=== PATIENT | male | born 1960 | race Caucasian/White ===

== ENCOUNTER 2021-09-28 11:05 | Observation (INO) | payer MEDICAID, SELFPAY ==
[2021-09-28] VITALS (13 sets, daily range): BP systolic 135–217; BP diastolic 75–114; PULSE 49–85; RESP 15–24; TEMP 36.5–37.3; O2SAT 92–99; BMI 28.0
--- NOTE | 2021-09-28 | USCV_ITS ---
Transthoracic Echo Jonathan Mclaughlin Age: 61 Gender: M : 1960 Exam Date: 09/28/2021 21:35 Ordering Phys: Krunal Dumont MD Technologist: CKSangeetha Exam Location: [facility] Indication: CHEST PAIN BP: 142 / 89 HR: 74 Rhythm: Sinus Technical Quality: Suboptimal MEASUREMENTS (Male / Female) Normal Values 2D ECHO LV Diastolic Diameter PLAX 3.4 cm 4.2 - 5.9 / 3.9 - 5.3 cm LV Systolic Diameter PLAX 2.0 cm IVS Diastolic Thickness 1.4 cm 0.6 - 1.0 / 0.6 - 0.9 cm IVS Systolic Thickness 1.4 cm LVPW Diastolic Thickness 1.5 cm 0.6 - 1.0 / 0.6 - 0.9 cm LVPW Systolic Thickness 2.0 cm LVOT Diameter 2.0 cm LV Ejection Fraction 2D Teich 73.0 % LV Ejection Fraction MOD 2C 77.3 % LV Ejection Fraction 2C AL 75.5 % LA Diameter 3.6 cm LA Width 4.4 cm LA Height 4.5 cm RA Width 4.3 cm RA Height 4.6 cm Aorta at Sinotubular Diameter 2.0 cm M-MODE Aortic Annulus Diameter 2.0 cm LA Ao Ratio MM 2.2 MV E Point Septal Separation 0.8 cm DOPPLER AV Peak Velocity 79.0 cm/s LVOT Peak Velocity 74.0 cm/s AV Area Cont Eq vti 5.2 cm squared AV Area Cont Eq pk 2.8 cm squared MV Peak Velocity 108.0 cm/s MV Area PHT 1.5 cm squared Mitral E to A Ratio 0.6 MV E' Velocity 33.0 cm/s Mitral E to MV E' Ratio 7.8 Mitral E to LV E' Lateral Ratio 7.6 Mitral E to LV E' Septal Ratio 8.0 TR Peak Velocity 186.7 cm/s TR Peak Gradient 13.9 mmHg TV Peak E Velocity 61.0 cm/s Right Atrial Pressure 3.0 mmHg Pulmonary Artery Systolic Pressu 16.9 mmHg RV Acceleration Time 0.1 s RV Ejection Time 0.4 s RV AcT/ET 0.4 FINDINGS Left Ventricle Normal left ventricular size, systolic function and wall thickness, with no regional wall motion abnormalities. Grade I/IV diastolic dysfunction (abnormal relaxation filling pattern), normal to mildly elevated filling pressures. Left ventricular ejection fraction is estimated at 55 %. Right Ventricle Normal right ventricular size and systolic function. Right Atrium Normal right atrial size. Left Atrium Normal left atrial size. Left atrium not well visualized. Mitral Valve Structurally normal mitral valve. No mitral valve stenosis. No mitral valve regurgitation. Aortic Valve Structurally normal trileaflet aortic valve. No aortic valve stenosis. No aortic valve regurgitation. Tricuspid Valve Structurally normal tricuspid valve. No tricuspid valve regurgitation. Pulmonic Valve Structurally normal pulmonic valve. Pericardium No pericardial effusion. Aorta Normal size aortic root and proximal ascending aorta. CONCLUSIONS Normal transthoracic echocardiogram. Dr. Horace Galloway MD (Electronically Signed) Final Date: 29 September 2021 12:50 S
--- NOTE | 2021-09-28 11:14 | XR_ITS ---
WS: [id number] Exam: XR chest 1V portable [id number] Date/Time of Exam: 09/28/2021 11:14 AM Reason For Exam: CP Comparison 09/28/2021. Findings: The lungs are clear and fully expanded. Costophrenic angles are sharp. No infiltrates. Bronchovascula r relief appears normal. Cardiac silhouette is unremarkable. Bony elements are intact. XR/XR chest 1V portable [id number] IMPRESSION: Unremarkable chest radiograph.
--- NOTE | 2021-09-28 11:14 | ECG_ITS ---
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 Measurements Intervals [place] Rate: 49 P: 10 WV: 148 QRS: -17 QRSD: 99 T: 13 QT: 435 QTc: 396 Interpretive Statements SINUS BRADYCARDIA INCOMPLETE RIGHT BUNDLE BRANCH BLOCK [90+ ms QRS DURATION, TERMINAL R IN V1/V2, 40+ ms S IN I/aVL/V4/V5/V6] MODERATE VOLTAGE CRITERIA FOR LVH, CONSIDER NORMAL VARIANT [MEETS CRITERIA IN ONE OF: R(aVL), S(V1), R(V5), R(V5/V6)+S(V1)] No previous ECG available for comparison Electronically Signed On 09-29-2021 12:25:00 DIRECTOR MEDICAL AFFAIRS by Horace Galloway M.D. [email or web address] [facility].Uni-[email or web address]/store/NU/[id number] f
--- NOTE | 2021-09-28 11:15 | ED_ITS ---
HPI - Chest Pain General: Chief Complaint: Chest Pain Stated Complaint: CHEST PAIN Time Seen by Provider: 09/28/21 11:08 History of Present Illness: 61-year-old male with history of hypertension presents with chest pain. States this started last night. Is not exertional or pleuritic. It is achy and does not radiate. Denies radiation to the back. Denies fever cough or chills. Denies any lower extremity pain or swelling. Denies nausea or vomiting. Does state that improved with nitroglycerin by EMS. Review of Systems Narrative: - CONSTITUTIONAL: Denies weight loss, fever and chills. - HEENT: Denies changes in vision and hearing. - RESPIRATORY: As above - CV: As above - GI: Denies abdominal pain, nausea, vomiting and diarrhea. - : Denies dysuria and urinary frequency. - MSK: Denies myalgia and joint pain. - SKIN: Denies rash and pruritus. - NEUROLOGICAL: Denies headache, weakness, numbness and syncope. - PSYCHIATRIC: Denies suicidal ideation Physical Exam Narrative: EXAM NARRATIVE: - GENERAL: Alert and oriented x 3. No acute distress. Well-nourished. - EYES: EOMI. Anicteric. - HENT: Atraumatic, no C-spine tenderness. Moist mucous membranes. No scleral icterus. No cervical lymphadenopathy. - LUNGS: Clear to auscultation bilaterally. No accessory muscle use. Equal lung sounds bilaterally. No respiratory distress. - CARDIOVASCULAR: Regular rate and rhythm. No murmur. No JVD. - ABDOMEN: Soft, non-tender and non-distended. Negative CVA tenderness bilaterally, no rebound or guarding, negative Miller sign. No palpable masses. - EXTREMITIES: No edema. Non-tender. - SKIN: No rashes or lesions. Warm. - NEUROLOGIC: No meningismus or focal neurological deficits. CN II-XII grossly intact. - PSYCHIATRIC: Cooperative. Appropriate mood and affect. Course 2 Vital Signs: Vital signs: Vital Signs Temperature 98.4 F 09/28/21 11:20 Pulse Rate 64 09/28/21 13:44 Respiratory Rate 16 09/28/21 13:44 Blood Pressure 217/111 09/28/21 13:44 Pulse Oximetry 94 09/28/21 13:44 MDM - Chest Pain Medical Decision Making 61-year-old presents with chest pain. Improved with nitro. Physical exam unremarkable. EKG and troponin not revealing sign of acute ischemia or other acute abnormality. D-dimer is negative. X-ray does not show pneumothorax or consolidation. Heart score however is elevated and patient is very hypertensive. Improved with labetalol. Remainder of lab work and imaging reviewed. Discussed with hospitalist and they agreed patient would benefit from admission. Patient admitted in stable condition. Further evaluation management per hospitalist team. Lab Data : 09/28/21 11:23 09/28/21 11:23 Radiology Impressions Chest X-Ray 09/28/21 11:14 IMPRESSION: Unremarkable chest radiograph. Laboratory Results WBC 9.2 10^3/uL (4.0-10.0) 09/28/21 11:23 RBC 5.60 10^6/uL (4.1-5.3) H 09/28/21 11:23 Hgb 16.8 g/dL (11.7-16.6) H 09/28/21 11:23 Hct 51.1 % (42.0-52.0) 09/28/21 11:23 MCV 91.3 fl (80-94) 09/28/21 11:23 MCH 30.0 pg (28.0-34.0) 09/28/21 11:23 MCHC 32.9 g/dL (30.0-36.0) 09/28/21 11:23 RDW 13.4 % (12.1-15.1) 09/28/21 11:23 Plt Count 201 10^3/cmm (130-400) 09/28/21 11:23 MPV 10.5 fL (7.4-10.4) H 09/28/21 11:23 Neut % (Auto) 82.3 % 09/28/21 11:23 Lymph % (Auto) 14.0 % 09/28/21 11:23 Newton % (Auto) 2.9 % 09/28/21 11:23 Eos % (Auto) 0.2 % 09/28/21 11:23 Baso % (Auto) 0.4 % 09/28/21 11:23 Neut # (Auto) 7.54 10^3/uL (1.8-7.7) 09/28/21 11:23 Lymph # (Auto) 1.3 10^3/uL (0.8-4.8) 09/28/21 11:23 Newton # (Auto) 0.3 10^3/uL (0.2-0.9) 09/28/21 11:23 Eos # (Auto) 0.0 10^3/uL (0.0-0.8) 09/28/21 11:23 Baso # (Auto) 0.0 10^3/uL (0.0-0.1) 09/28/21 11:23 Nucleated RBC % (auto) 0 % 09/28/21 11:23 Nucleated RBCs # 0.0 /100WBC 09/28/21 11:23 D-Dimer 0.49 ug/mIFEU (0-0.59) 09/28/21 11:53 Sodium 135 mmol/L (136-145) L 09/28/21 11:23 Potassium 4.7 mmol/L (3.5-5.1) 09/28/21 11:23 Chloride 102 mmol/L (98-107) 09/28/21 11:23 Carbon Dioxide 22 mmol/L (22-29) 09/28/21 11:23 Anion Gap 15.7 (5-19) 09/28/21 11:23 BUN 13 mg/dL (6-20) 09/28/21 11:23 Creatinine 0.7 mg/dL (0.7-1.2) 09/28/21 11:23 GFR Calculation 115.4 mL/min (90-130) 09/28/21 11:23 Glucose 175 mg/dL (65-115) H 09/28/21 11:23 Calculated Osmolality 284 mOsm/kg (285-295) L 09/28/21 11:23 Calcium 9.2 mg/dL (8.5-10.5) 09/28/21 11:23 Total Bilirubin 0.7 mg/dL (0.15-1.2) 09/28/21 11:23 AST 28 U/L (0-40) 09/28/21 11:23 ALT 30 U/L (0-41) 09/28/21 11:23 Alkaline Phosphatase 89 IU/L (40-130) 09/28/21 11:23 Troponin T Baseline 8 ng/L (0-15) 09/28/21 11:23 Troponin T 120 Minute 8.20 ng/L (0-15) 09/28/21 13:22 Delta Troponin T 0.2 ABS# (0-10) 09/28/21 13:22 NT-Pro-B Natriuret Pep 574 pg/mL (0-125) H 09/28/21 11:23 Total Protein 7.7 g/dL (6.6-8.7) 09/28/21 11:23 Albumin 4.4 g/dL (3.5-5.2) 09/28/21 11:23 Globulin 3.3 g/dL (1.3-4.6) 09/28/21 11:23 Lipase 33 U/L (13-60) 09/28/21 11:23 SARS-CoV-2 Ag (Rapid) Negative (Negative) 09/28/21 11:41 EKG Data EKG 1: Other EKG comments: Sinus bradycardia, rate of 49, incomplete right bundle branch block, possible LVH, no sign of acute ischemia or other acute abnormality. 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
[2021-09-28 11:31] LABS: Basophils % 0.4 %; Eosinophils % 0.2 %; Hematocrit 51.1 % (42.0-52.0); Hemoglobin 16.8 g/dL (11.7-16.6); Lymphocytes # 1.3 10^3/uL (0.8-4.8); Mean Corpuscular HGB Conc 32.9 g/dL (30.0-36.0); Mean Corpuscular Volume 91.3 fl (80-94); Mean Platelet Volume 10.5 fL (7.4-10.4); Monocytes # 0.3 10^3/uL (0.2-0.9); Monocytes % 2.9 %; Neutrophils # 7.54 10^3/uL (1.8-7.7); Neutrophils % 82.3 %; Nucleated Red Blood Cells % 0 %; Platelet Count 201 10^3/cmm (130-400); Red Cell Distribution Width 13.4 % (12.1-15.1); White Blood Count 9.2 10^3/uL (4.0-10.0)
[2021-09-28] MEDS: ondansetron 2 mg/ML SDV 2 mL 4 MG IVP (11:37)
[2021-09-28] MEDS: aspirin 81 mg Chew Tablet 324 MG PO (11:37)
[2021-09-28] MEDS: morphine 4 mg/mL SDV 1 mL IVP (11:38)
[2021-09-28 11:55] LABS: Alanine Aminotransferase 30 U/L (0-41); Albumin Level 4.4 g/dL (3.5-5.2); Alkaline Phosphatase 89 IU/L (40-130); Anion Gap 15.7 (5-19); Aspartate Amino Transferase 28 U/L (0-40); Blood Urea Nitrogen 13 mg/dL (6-20); Calcium 9.2 mg/dL (8.5-10.5); Carbon Dioxide 22 mmol/L (22-29); Chloride 102 mmol/L (98-107); Globulin 3.3 g/dL (1.3-4.6); Glomerular Filtration Rate 115.4 mL/min (90-130); Glucose 175 mg/dL (65-115); Lipase 33 U/L (13-60); Osmolality Calculated 284 mOsm/kg (285-295); Potassium 4.7 mmol/L (3.5-5.1); Sodium 135 mmol/L (136-145); Total Bilirubin 0.7 mg/dL (0.15-1.2); Total Protein 7.7 g/dL (6.6-8.7); Troponin(5th) Baseline 8 ng/L (0-15)
[2021-09-28 12:13] LABS: D Dimer 0.49 ug/mIFEU (0-0.59)
[2021-09-28 12:18] LABS: Slide Review Slide Review Perform
[2021-09-28 12:19] LABS: NT Pro B Type Natriuretic Pept 574 pg/mL (0-125)
[2021-09-28 12:23] LABS: SARS Covid-2 Antigen Negative (Negative)
--- NOTE | 2021-09-28 13:14 | ECG_ITS ---
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 Measurements Intervals [place] Rate: 57 P: 54 [place]: 157 QRS: -16 QRSD: 101 T: 16 QT: 415 QTc: 405 Interpretive Statements SINUS BRADYCARDIA POSSIBLE LEFT ATRIAL ENLARGEMENT [-0.1mV P-WAVE IN V1/V2] INCOMPLETE RIGHT BUNDLE BRANCH BLOCK [90+ ms QRS DURATION, TERMINAL R IN V1/V2, 40+ ms S IN I/aVL/V4/V5/V6] POSSIBLE LEFT VENTRICULAR HYPERTROPHY [VOLTAGE CRITERIA PLUS LAE OR QRS WIDENING] No previous ECG available for comparison Electronically Signed On 09-28-2021 13:45:09 TRANSPORT ANALYST by Keyon Clarke M.D. [email or web address]/[id number]
--- NOTE | 2021-09-28 13:44 | PC.NURSE ---
PATIENT STATES THAT HE IS FEELING MUCH BETTER. PATIENTS MAIN COMPLAINT IS NAUSEA.
[2021-09-28] MEDS: labetalol 5 mg/mL SDV 20mL 10 MG IVP (14:48)
[2021-09-28 14:49] LABS: Troponin 5 2HR Delta 0.2 ABS# (0-10)
--- NOTE | 2021-09-28 15:18 | PM.HP ---
Providers/Chief Complaint Chief Complaint: CHEST PAIN History of Present Illness Jonathan Mclaughlin is a 61 year old male with a past medical history of hypertension, marijuana use, smoker, who presents [facility] due to elevated blood pressure and chest pain. Patient tells me that recently he has not been doing so well, he is very anxious, he cannot afford his Xanax, so he has been resorted to taking marijuana for his anxiety. He continues to have anxiety episodes. He also reports intermittent chest pains, very nonspecific, substernal squeezing-like pain. He tells me that this morning, he woke up, he was not feeling well, having headache, chest pressure, chest heaviness so he checked his blood pressure and it greater than 200, so he came to the emergency room for evaluation. Denies any drug use, denies any cocaine use or methamphetamine use. Currently having episodes of chest discomfort, anterior, nonradiating, no shortness of breath, no lightheaded, dizziness, no strokelike symptoms, no paresthesias. He does report a headache, no blurry vision, no tinnitus. Does feel nauseous. Currently blood pressure is 211/110, has been given labetalol, aspirin. Hospitalist team was called for admission. Denies a cardiovascular history. Denies history of strokes. Denies history of type 2 diabetes mellitus. No history of COVID-19 infection. No history of COVID-19 vaccinations. No fevers, no chills, no cough. Review of Systems Const: Denies: fever(s), chills, fatigue or malaise Eyes: Denies: change in vision or blurry vision ENMT: Denies: nasal congestion Card: Reports: chest pain; Denies: palpitations, irregular heart rhythm or dyspnea on exertion Resp: Denies: dyspnea, productive cough, non-productive cough or wheezing GI: Reports: nausea; Denies: abdominal pain, vomiting, hematemesis, diarrhea, constipation, hematochezia or melena : Denies: flank pain, difficulty urinating, dysuria or urinary frequency Musc: Denies: neck pain or back pain Skin/Breast: Denies: rash Neuro: Denies: headache(s), dizziness or vertigo Psych: Reports: anxiety; Denies: depression Endo: Denies: polyuria or polydipsia Medications/Allergies Home Medications Medication Instructions Recorded Confirmed Last Taken Type hydralazine 50 mg tablet 50 mg PO BID 09/28/21 09/28/21 Unknown History metoprolol tartrate 25 mg tablet 75 mg PO BID 09/28/21 09/28/21 Unknown History PFSH Acute PFSH: Medical History (Updated 09/28/21 @ 15:22 by Krunal Dumont MD) History of hypertension Surgical History (Updated 09/28/21 @ 15:20 by Krunal Dumont MD) History of carpal tunnel surgery Family History (Updated 09/28/21 @ 15:21 by Krunal Dumont MD) Other CAD (coronary artery disease) Diabetes Social History (Updated 09/28/21 @ 15:21 by Krunal Dumont MD) Smoking and tobacco status: current every day smoker Alcohol intake: never Substance/Drug Use: never Vitals/I&O/Wt Last Vital Signs Temp 98.4 F 09/28/21 11:20 Pulse 71 09/28/21 15:00 Resp 16 09/28/21 15:00 BP 207/114 09/28/21 15:00 Pulse Ox 93 09/28/21 15:00 Weight last 48 hrs Weight 86.183 kg Physical Exam Const: COMMON NORMALS: no acute distress and patient oriented x3 HENMT: COMMON NORMALS: normocephalic HEAD & SCALP: normocephalic Eye: COMMON NORMALS: Equal, round and reactive pupils present and EOMs intact bilaterally Neck/C-Spine: COMMON NORMALS: no JVD Lymph: LYMPHATIC: no lymphadenopathy noted Resp: COMMON NORMALS: normal respiratory effort, No retractions, No use of accessory muscles and clear to auscultation bilaterally AUSCULTATION: clear to auscultation bilaterally Cardio: COMMON NORMALS: no JVD, regular rate, regular rhythm, S1 normal heart sound present and S2 normal heart sound present RATE: regular rate RHYTHM: regular rhythm HEART SOUNDS: S1 normal heart sound present and S2 normal heart sound present GI: COMMON NORMALS: Normal to inspection, nondistended, normoactive bowel sounds present, Soft to palpation, non-tender, No hepatosplenomegaly present, no masses and no bruits PALPATION: Yes Soft to palpation and Yes No hepatosplenomegaly present Extremity: COMMON NORMALS: capillary refill normal, no clubbing, cyanosis or edema, no calf tenderness and no pedal edema Neuro: COMMON NORMALS: patient oriented x3 Psych: COMMON NORMALS: mental status grossly normal Data : 09/28/21 11:23 09/28/21 11:23 A&P Assessment and plan (1) Hypertensive urgency: -Start nitroglycerin drip as has hypertension and chest pain -Goals to decrease gradually decrease systolic blood pressure less than 160, diastolic less than 100, -Continue metoprolol 25 twice daily -Family's concern for interaction with hydralazine, stop -Add lisinopril 20 twice daily -We will consider adding clonidine 0.1 twice daily -Xanax as needed for anxiety -Lovenox for DVT prophylaxis -Full code Headache, with hypertensive urgency we will do CT of the head Chest pain -Received aspirin, will be placed on nitro drip, atorvastatin -Serial EKGs, serial troponins, telemetry monitoring -TSH, mag, urine toxicology screen -Cardiac echocardiogram -Cardiac stress test Anxiety, Xanax 0.5 mg 3 times daily as needed Status: Acute (2) Chest pain: Status: Acute (3) Anxiety: Status: Acute Attestations Medical Necessity Statement*: Patient requires hospitalization, outpatient, with observation, for chest pain, hypertensive urgency, anxiety Coding Level of Care Code Acute Traffic Survey Technician for [facility] Fwd Diagnoses Hypertensive urgency I16.0 Chest pain R07.9 Anxiety F41.9
--- NOTE | 2021-09-28 16:01 | PC.NURSE ---
PATIENT GIVEN URINAL FOR URINE SPECIMEN. PATIENT COMPLAINT OF CHEST PRESSURE. EKG PERFORMED ON PATIENT DUE TO CHANGE OF STATUS. PATIENT ALSO REPORTED BEING COLD AND DIAPHORETIC. PROVIDER NOTIFIED OF CHANGES AND REASON FOR EKG, AND EKG GIVEN.
[2021-09-28] MEDS: nitroglycerin drip 50 MG/250 ML PREMIX IV (16:05)
--- NOTE | 2021-09-28 17:14 | ECG_ITS ---
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 Measurements Intervals [place] Rate: 56 P: 49 NE: 159 QRS: -3 QRSD: 90 T: 42 QT: 405 QTc: 394 Interpretive Statements SINUS BRADYCARDIA POSSIBLE LEFT ATRIAL ENLARGEMENT [-0.1mV P-WAVE IN V1/V2] POSSIBLE RIGHT VENTRICULAR CONDUCTION DELAY [RSR (QR) IN V1/V2] Compared to ECG 09/28/2021 13:42:15 Incomplete right bundle-branch block no longer present Electronically Signed On 09-29-2021 12:29:05 WRITER TECHNICAL PUBLICATIONS by Horace Galloway M.D. [email or web address] [email or web address] - Memories in [facility].Just Dial/store/OM/[id number]
[2021-09-28 17:31] LABS: Troponin 5 6HR 8.43 ng/L (0-15)
[2021-09-28 17:48] LABS: Amphetamines Screen Urine Negative (Negative); Barbiturates Screen Urine Negative (Negative); Benzodiazepines Screen Urine Negative (Negative); Cocaine Screen Urine Negative (Negative); Opiate Screen Urine Positive (Negative); PCP Screen Urine Negative (Negative); THC Screen Urine Positive (Negative)
[2021-09-28 18:04] LABS: Troponin 5 6HR Delta 0.43 ng/L (0-12)
--- NOTE | 2021-09-28 18:23 | CTR_ITS ---
PROCEDURE INFORMATION: Exam: CT Head Without Contrast Exam date and time: 09/28/2021 6:23 PM Age: 61 years old Clinical indication: Pain; Vascular; Patient HX: HTN headache; Additional info: HTN urgency TECHNIQUE: Imaging protocol: Computed tomography of the head without contrast. Radiation optimization: All CT scans at this facility use at least one of these dose optimization techniques: automated exposure control; mA and/or kV adjustment per patient size (includes targeted exams where dose is matched to clinical indication); or iterative reconstruction. COMPARISON: No relevant prior studies available. RADIATION DOSE METRICS: Total DLP (mGy-cm): 979.94 FINDINGS: Brain: Mild cortical volume loss. Mild hypodensities in supratentorial periventricular and subcortical white matter, consistent with microangiopathy. No intracranial hemorrhage. Cerebral ventricles: No ventriculomegaly. Paranasal sinuses: Visualized sinuses are unremarkable. No fluid levels. Mastoid air cells: Left mastoid effusion. The right mastoid is clear. Vasculature: No hyperdense artery. Bones/joints: Unremarkable. No acute fracture. Soft tissues: Unremarkable. CT/CT head wo con* [id number] IMPRESSION: 1. No acute intracranial abnormality.
--- NOTE | 2021-09-28 18:23 | ECG_ITS ---
[facility] Test Date: 2021-09-29 Pat Name: Jonathan Mclaughlin Department: Room: 102 Gender: Male Em Physician: Nicole Blue : 1960 Requested By: Krunal Dumont Order Number: [id number] Jeri MD: Keyon Clarke M.D. Interpretive Statements NAME OF STUDY: LEXISCAN SESTAMIBI STRESS TEST INDICATION: Chest Pain, PROCEDURE: At the baseline, the EKG revealed normal sinus rhythm with some nonspecific T wave changes. Because of the baseline artifact, the EKG is difficult to interpret. The baseline blood pressure was 147/97 mm Hg with a heart rate of 68 beats/min. Lexiscan was infused over a period of 20 seconds. A total of 0.4 milligrams of Lexiscan was infused. The stress phase was continued for a total of 5 minutes. Heart rate at the end of the stress phase was 76 with a blood pressure 150/88. The EKG at the peak infusion revealed no significant changes. Sestamibi was injected 20 seconds after the Lexiscan infusion. Blood pressure at the end of the recovery phase was 153/93 with a heart rate of 74 per minute. CONCLUSION: 1. No significant EKG changes with the LexiScan infusion 2. No LexiScan induced chest pain or cardiac arrhythmia 3. Normal blood pressure and heart rate response 4. Sestamibi/sestamibi perfusion scan pending; see separate report. Electronically Signed On 09-29-2021 11:12:12 MANAGER FLIGHT by Keyon Clarke M.D. [id number]
[2021-09-28 18:47] LABS: Estmated Average Glucose 128; Hemoglobin A1C 6.1 % (4.0-6.0)
[2021-09-28 18:55] LABS: Chol HDL Ratio 4.66 mg/dL (1.0-5.00); Cholesterol 219 mg/dL (0-200); HDL Cholesterol 47 mg/dL (60-100); LDL Cholesterol Calculated 156 mg/dL (50-129); LDL HDL Ratio 3.32 RATIO (0.00-3.22); Thyroid Stimulating Hormone 0.01 uIU/mL (0.27-4.20); Triglycerides 79 mg/dL (0-150)
--- NOTE | 2021-09-28 19:43 | PC.NURSE ---
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 Covering service notified. Orders reviewed & will continue to monitor. Patient and/or operations representative oriented to environment, equipment, and informed of the following as found in the admission booklet: patient rights & responsibilities, visitor policy, hand and respiratory hygiene practice. Other education includes: Activity restrictions and reportable s/s . Patient and/or operations representative Verbalized understanding of all teaching.
--- NOTE | 2021-09-28 19:48 | PC.NURSE ---
Admit Note Patient admitted to CSU from ED via stretcher. Covering service notified. Patient presents with c/o chest pressure. Orders reviewed & will continue to monitor. Patient and/or corporate representative oriented to environment, equipment, and informed of the following as found in the admission booklet: patient rights & responsibilities, visitor policy, hand and respiratory hygiene practice. Other education includes: Activity and diet orders, reportable s/s. Patient and/or corporate representative verbalized understanding of all teaching.
[2021-09-28] MEDS: metoprolol tartrate 50 mg Tablet 75 MG PO (20:30)
[2021-09-28] MEDS: famotidine 20 mg Tablet PO (20:30)
[2021-09-28] MEDS: lisinopril 20 mg Tablet PO (20:30)
[2021-09-28] MEDS: atorvastatin 40 mg Tablet PO (20:30)
[2021-09-28] MEDS: enoxaparin 40 mg/0.4 mL Syringe SUBCUT (20:32)
[2021-09-29] VITALS (23 sets, daily range): BP systolic 118–163; BP diastolic 69–115; PULSE 58–76; RESP 12–22; TEMP 36.9–37.2; O2SAT 92–95
[2021-09-29 04:50] LABS: Basophils # 0.1 10^3/uL (0.0-0.1); Basophils % 0.4 %; Eosinophils # 0.1 10^3/uL (0.0-0.8); Hematocrit 49.6 % (42.0-52.0); Hemoglobin 16.6 g/dL (11.7-16.6); Lymphocytes # 3.1 10^3/uL (0.8-4.8); Mean Corpuscular HGB Conc 33.5 g/dL (30.0-36.0); Mean Corpuscular Hemoglobin 30.2 pg (28.0-34.0); Mean Corpuscular Volume 90.2 fl (80-94); Mean Platelet Volume 10.3 fL (7.4-10.4); Monocytes # 1.4 10^3/uL (0.2-0.9); Monocytes % 11.9 %; Neutrophils # 6.81 10^3/uL (1.8-7.7); Neutrophils % 59.5 %; Nucleated Red Blood Cells % 0 %; Platelet Count 232 10^3/cmm (130-400); Red Cell Distribution Width 13.4 % (12.1-15.1); White Blood Count 11.4 10^3/uL (4.0-10.0)
--- NOTE | 2021-09-29 04:55 | PC.NURSE ---
Pt rested quietly throughout shift. VSS. pt up to bathroom independently. adequate UOP. pt NPO since midnight. No complaints of pain. Hourly rounding done. All needs met.
[2021-09-29 05:10] LABS: Alanine Aminotransferase 25 U/L (0-41); Albumin Level 3.9 g/dL (3.5-5.2); Alkaline Phosphatase 80 IU/L (40-130); Blood Urea Nitrogen 19 mg/dL (6-20); Calcium 8.9 mg/dL (8.5-10.5); Carbon Dioxide 22 mmol/L (22-29); Chloride 102 mmol/L (98-107); Creatinine Clr Calc Pharmacy 109.1003; Globulin 3.3 g/dL (1.3-4.6); Glomerular Filtration Rate 98.9 mL/min (90-130); Glucose 116 mg/dL (65-115); Magnesium 2.3 mg/dL (1.7-2.3); Osmolality Calculated 281 mOsm/kg (285-295); Phosphorus 3.1 mg/dL (2.5-4.5); Sodium 134 mmol/L (136-145); Total Bilirubin 0.7 mg/dL (0.15-1.2); Total Protein 7.2 g/dL (6.6-8.7)
[2021-09-29 05:11] LABS: Anion Gap 13.9 (5-19); Aspartate Amino Transferase 18 U/L (0-40); Potassium 3.9 mmol/L (3.5-5.1)
[2021-09-29 05:15] LABS: NT Pro B Type Natriuretic Pept 886 pg/mL (0-125)
[2021-09-29] MEDS: regadenoson 0.4 Mg/5 ml Syringe IVP (08:06)
[2021-09-29] MEDS: ondansetron 2 mg/ML SDV 2 mL 4 MG IVP (08:23)
[2021-09-29] MEDS: chlorthalidone 25 mg Tablet PO (09:39)
[2021-09-29] MEDS: metoprolol tartrate 50 mg Tablet 75 MG PO (09:39)
[2021-09-29] MEDS: famotidine 20 mg Tablet PO (09:39)
[2021-09-29] MEDS: aspirin 81 mg EC Tablet PO (09:39)
[2021-09-29] MEDS: lisinopril 20 mg Tablet PO (09:39)
--- NOTE | 2021-09-29 10:01 | PC.CHAP ---
Pastoral Care Encounter/Spiritual Assessment Type of Contact [] Declined heddler tier visit [] Patient/Family/Request visit [] Outpatient visit [] Follow-up visit [] Physician referral [] Code/Alert [x] Routine visit [] Staff referral [] Actively dying [] Patient sleeping [] Family support [] [x] Out of room [] Palliative care [] [] Receiving care in room [] Pre-surgical visit [] Trauma [] Long length of stay [] ICU visit [x] Other: testing Relational/Emotional Strength [] Patient feels connected with others/family/visitors/staff [] Distress [] Loneliness/isolation [] Abandonment Spirituality of Patient [] Person of Ese [] Attends Sikhism of their Ese [] Believes in Prayer [] Reads Bible or Muslim materials [] There are Spiritual issues to be addressed Curing Oven Tender Interventions [x] Prayer [] Active listening [] Non-anxious presence [] Spiritual/emotional support [] Crisis/trauma care [] Spiritual counseling [] Bereavement support [] Provided bereavement packet [] Provided Bible/devotional materials [] Provided toy/stuffed animal, coloring book to patient or family member [] Provided Communion [] Anointing/[place] [] Salvation [x] Completed spiritual assessment [] Other: Impact on Illness or Injury [] Angry [] Fearful [] Anxious [] Often cries [] Exhaustion [] Unable to work [] Unable to attend faith [] Unable to walk/stand [] Unable to read [] Unable to drive [] Unable to eat/drink [] Unable to sleep [] Unable to be with family [] Patient intubated [] Other: Summary Time spent with patient
[2021-09-29 11:36] LABS: T3 Free 3.7 PG/ML (2.0-4.4)
[2021-09-29 11:40] LABS: Free T4 Free Thyroxine 1.61 ng/dL (0.82-1.77)
--- NOTE | 2021-09-29 11:58 | US_ITS ---
WS: [id number] ULTRASOUND THYROID TECHNIQUE: Ultrasound of the thyroid. CLINICAL INFORMATION: thyroid nodules COMPARISON: None. FINDINGS: Thyroid: Normal size thyroid gland with heterogeneous thyroid echotexture bilaterally. RIGHT lobe sli ghtly larger than the LEFT Right thyroid lobe: 4.6 cm x 1.5 cm x 2.6 cm Left thyroid lobe: 3.6 cm x 1.5 cm x 1.9 cm. Isthmus: 0.7 mm. Hypoechoic ovoid nodule in the isthmus measuring 4.4 x 9.7 x 9.9 mm eccentric to the LEFT. No other s uspicious nodules. Cervical lymphadenopathy: None. US/US thyroid [id number] IMPRESSION: 1. Heterogeneous thyroid echotexture bilaterally. 2. Ovoid hypoechoic nodule in the LEFT isthmus measuring 4.4 x 9.7 x 9.9 mm ec centric to the LEFT. Recommend 12 month follow-up. 3. No other suspicious nodules.
[2021-09-29] MEDS: cloNIDine 0.1 mg Tablet PO (12:03)
--- NOTE | 2021-09-29 12:40 | PM.PN ---
Subjective Subjective: Patient's was seen this morning, in the stress lab, no chest pain overnight, remains on a nitro drip, no nausea, no vomiting Vitals/I&O/Wt Last Vital Signs Temp 98.5 F 09/29/21 11:24 Pulse 65 09/29/21 11:24 Resp 22 H 09/29/21 11:24 BP 163/96 09/29/21 11:24 Pulse Ox 95 09/29/21 10:43 09/28/21 09/29/21 09/29/21 22:59 06:59 14:59 Intake Total 304.275 / 304.275 0 / 304.275 267.4 / 267.4 Output Total 200 / 200 Balance 304.275 / 304.275 -200 / 104.275 267.4 / 267.4 Weight last 48 hrs Weight 87.906 kg Weight 86.183 kg Physical Exam Const: COMMON NORMALS: no acute distress and patient oriented x3 Resp: COMMON NORMALS: normal respiratory effort, No retractions, No use of accessory muscles and clear to auscultation bilaterally AUSCULTATION: clear to auscultation bilaterally Cardio: COMMON NORMALS: regular rate, regular rhythm, S1 normal heart sound present and S2 normal heart sound present RATE: regular rate RHYTHM: regular rhythm HEART SOUNDS: S1 normal heart sound present and S2 normal heart sound present GI: COMMON NORMALS: Normal to inspection, nondistended, normoactive bowel sounds present, Soft to palpation, non-tender and No hepatosplenomegaly present PALPATION: Yes Soft to palpation and Yes No hepatosplenomegaly present Extremity: COMMON NORMALS: no pedal edema Neuro: COMMON NORMALS: patient oriented x3 Psych: COMMON NORMALS: mental status grossly normal Data : 09/29/21 04:08 09/29/21 04:08 A&P Assessment and plan (1) Hypertensive urgency: -Remains on nitroglycerin drip, wean -Goals to decrease gradually decrease systolic blood pressure less than 160, diastolic less than 100, -Continue metoprolol 75 mg twice a day -Family's concern for interaction with hydralazine, stop -Add lisinopril 20 twice daily -Add chlorthalidone 25 mg daily -We will consider adding clonidine 0.1 twice daily -Xanax as needed for anxiety -Lovenox for DVT prophylaxis -Full code -We will possibly keep today, as patient's blood pressures remain difficult to control, need to wean off nitroglycerin drip Headache, with hypertensive urgency, improved, CT head no acute findings Chest pain -Received aspirin, atorvastatin -Serial EKGs no acute ST-T wave changes serial troponins no significant delta troponin telemetry monitoring -Cardiac echocardiogram -Cardiac stress test Low TSH, T3, T4 within normal limits, likely subclinical hyperthyroidism -On exam, thyroid mild supple nodules palpated bilateral thyroid hemispheres -Thyroid ultrasound -Needs to follow-up with endocrinology Anxiety, Xanax 0.5 mg 3 times daily as needed Status: Acute (2) Chest pain: Status: Acute (3) Anxiety: Status: Acute Attestations Medical Necessity Statement*: Patient requires hospitalization, inpatient, greater than 2 midnights, for hypertensive urgency, remains on nitroglycerin drip, blood pressure difficult to control Coding Level of Care Code Acute [employer] 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
--- NOTE | 2021-09-29 16:10 | PC.PT ---
Attempted PT evaluation at this time, patient declines states has been walking independently through hospital without device, and doing well, and no needs. Later occupational therapist came by and patient demonstrated independent transfers and ambulation with good safety awareness and abilities and had no needs, no further PT evaluation attempts to be made.
--- NOTE | 2021-09-29 16:22 | PM.DCS ---
Discharge Providers Date of Admission: 09/29/21 12:40 Date of Discharge: September 29, 2021 Attending Provider at Admission: Krunal Dumont MD Attending Provider at Discharge: Krunal Dumont MD Diagnoses at Discharge Discharge Diagnosis (1) Hypertensive urgency: Status: Acute (2) Chest pain: Status: Acute (3) Anxiety: Status: Acute Reason for Visit Reason for Visit: CHEST PAIN Hospital Course Hospital Course This is a [age]-year-old male with a past medical history of anxiety and hypertension who presents to [facility] for elevated blood pressure, headache, chest pain Patient was admitted to [facility] for hypertensive urgency, managed with nitro drip, nitro drip was weaned off Discharged on his home metoprolol 25 mg twice a day, chlorthalidone 25 mg daily, lisinopril 20 mg twice a day. I did tell him that I am worried about overcorrection of his blood pressure, nonetheless he has tolerated clonidine 0.1 twice daily. I advised him to check his blood pressure twice a day, bring blood pressure logs to primary care physician's office. If his systolic is less than 100 or diastolic is less than 50, or if he feels lightheaded or dizzy hold clonidine for now. For his chest pain, no acute ST-T wave changes, no significant delta troponin, stress testing showed low probability obstructive CAD. Patient was discharged with instructions to monitor for chest pain if so go to the emergency room nitro as needed for chest pain. Patient was also found to have a low TSH, normal T3, normal T4, thyroid ultrasound showed a heterogeneous thyroid, ovoid hypoechoic nodule. Follow-up with endocrinology. Possible subclinical hyperthyroidism. Physical Exam Const: COMMON NORMALS: no acute distress and patient oriented x3 Resp: COMMON NORMALS: normal respiratory effort, No retractions, No use of accessory muscles and clear to auscultation bilaterally AUSCULTATION: clear to auscultation bilaterally Cardio: COMMON NORMALS: regular rate, regular rhythm, S1 normal heart sound present and S2 normal heart sound present RATE: regular rate RHYTHM: regular rhythm HEART SOUNDS: S1 normal heart sound present and S2 normal heart sound present GI: COMMON NORMALS: Normal to inspection, nondistended, normoactive bowel sounds present, Soft to palpation, non-tender, No hepatosplenomegaly present, no masses and no bruits PALPATION: Yes Soft to palpation and Yes No hepatosplenomegaly present Extremity: COMMON NORMALS: no pedal edema Neuro: COMMON NORMALS: patient oriented x3 Psych: COMMON NORMALS: mental status grossly normal Discharge Data Studies Completed and Pending Completed Studies During Hospitalization Category Date Time Status CT head wo con* [id number] Urgent Cat Scan 09/28/21 18:23 Completed Sestamibi Stress Test Request Routine Exams 09/28/21 18:23 Completed XR chest 1V portable [id number] Stat Exams 09/28/21 11:14 Completed NM ale perf SPECT r/s* [id number] Routine Nuc Med 09/29/21 18:23 Completed [place] thyroid [id number] Stat Ultrasound 09/29/21 11:58 Completed Pending at discharge Category Date Time Status Complete Blood Count w/Auto AM LABS Lab 09/30/21 04:00 Ordered Complete Blood Count w/Auto AM LABS Lab 10/01/21 04:00 Ordered Comprehensive Metabolic Panel AM LABS Lab 09/30/21 04:00 Ordered Comprehensive Metabolic Panel AM LABS Lab 10/01/21 04:00 Ordered Magnesium AM LABS Lab 09/30/21 04:00 Ordered Magnesium AM LABS Lab 10/01/21 04:00 Ordered Phosphorus AM LABS Lab 09/30/21 04:00 Ordered Phosphorus AM LABS Lab 10/01/21 04:00 Ordered T4, Thyroxine, Total Stat Lab 09/29/21 12:25 Received CV. echo complete* [id number] Routine Ultrasound 09/28/21 18:23 Taken Radiology Impressions Chest X-Ray 09/28/21 11:14 IMPRESSION: Unremarkable chest radiograph. Head CT 09/28/21 18:23 IMPRESSION: 1. No acute intracranial abnormality. Thyroid Ultrasound 09/29/21 11:58 IMPRESSION: 1. Heterogeneous thyroid echotexture bilaterally. 2. Ovoid hypoechoic nodule in the LEFT isthmus measuring 4.4 x 9.7 x 9.9 mm eccentric to the LEFT. Recommend 12 month follow-up. 3. No other suspicious nodules. Laboratory Results WBC 11.4 10^3/uL (4.0-10.0) H 09/29/21 04:08 RBC 5.50 10^6/uL (4.1-5.3) H 09/29/21 04:08 Hgb 16.6 g/dL (11.7-16.6) 09/29/21 04:08 Hct 49.6 % (42.0-52.0) 09/29/21 04:08 MCV 90.2 fl (80-94) 09/29/21 04:08 MCH 30.2 pg (28.0-34.0) 09/29/21 04:08 MCHC 33.5 g/dL (30.0-36.0) 09/29/21 04:08 RDW 13.4 % (12.1-15.1) 09/29/21 04:08 Plt Count 232 10^3/cmm (130-400) 09/29/21 04:08 MPV 10.3 fL (7.4-10.4) 09/29/21 04:08 Neut % (Auto) 59.5 % 09/29/21 04:08 Lymph % (Auto) 27.0 % 09/29/21 04:08 [place] % (Auto) 11.9 % 09/29/21 04:08 Eos % (Auto) 1.0 % 09/29/21 04:08 Baso % (Auto) 0.4 % 09/29/21 04:08 Neut # (Auto) 6.81 10^3/uL (1.8-7.7) 09/29/21 04:08 Lymph # (Auto) 3.1 10^3/uL (0.8-4.8) 09/29/21 04:08 [place] # (Auto) 1.4 10^3/uL (0.2-0.9) H 09/29/21 04:08 Eos # (Auto) 0.1 10^3/uL (0.0-0.8) 09/29/21 04:08 Baso # (Auto) 0.1 10^3/uL (0.0-0.1) 09/29/21 04:08 Nucleated RBC % (auto) 0 % 09/29/21 04:08 Nucleated RBCs # 0.0 /100WBC 09/29/21 04:08 D-Dimer 0.49 ug/mIFEU (0-0.59) 09/28/21 11:53 Sodium 134 mmol/L (136-145) L 09/29/21 04:08 Potassium 3.9 mmol/L (3.5-5.1) 09/29/21 04:08 Chloride 102 mmol/L (98-107) 09/29/21 04:08 Carbon Dioxide 22 mmol/L (22-29) 09/29/21 04:08 Anion Gap 13.9 (5-19) 09/29/21 04:08 BUN 19 mg/dL (6-20) 09/29/21 04:08 Creatinine 0.8 mg/dL (0.7-1.2) 09/29/21 04:08 GFR Calculation 98.9 mL/min (90-130) 09/29/21 04:08 Glucose 116 mg/dL (65-115) H 09/29/21 04:08 Estimat Average Glucose 128 09/28/21 11:23 Hemoglobin A1c 6.1 % (4.0-6.0) H 09/28/21 11:23 Calculated Osmolality 281 mOsm/kg (285-295) L 09/29/21 04:08 Calcium 8.9 mg/dL (8.5-10.5) 09/29/21 04:08 Phosphorus 3.1 mg/dL (2.5-4.5) 09/29/21 04:08 Magnesium 2.3 mg/dL (1.7-2.3) 09/29/21 04:08 Total Bilirubin 0.7 mg/dL (0.15-1.2) 09/29/21 04:08 AST 18 U/L (0-40) 09/29/21 04:08 ALT 25 U/L (0-41) 09/29/21 04:08 Alkaline Phosphatase 80 IU/L (40-130) 09/29/21 04:08 Troponin T Baseline 8 ng/L (0-15) 09/28/21 11:23 Troponin T 120 Minute 8.20 ng/L (0-15) 09/28/21 13:22 Delta Troponin T 0.2 ABS# (0-10) 09/28/21 13:22 Troponin T Hi Sens 6Hr 8.43 ng/L (0-15) 09/28/21 17:04 Troponin T Hi Sens 6Hr Delta 0.43 ng/L (0-12) 09/28/21 17:04 NT-Pro-B Natriuret Pep 886 pg/mL (0-125) H 09/29/21 04:08 Total Protein 7.2 g/dL (6.6-8.7) 09/29/21 04:08 Albumin 3.9 g/dL (3.5-5.2) 09/29/21 04:08 Globulin 3.3 g/dL (1.3-4.6) 09/29/21 04:08 Triglycerides 79 mg/dL (0-150) 09/28/21 11:23 Cholesterol 219 mg/dL (0-200) H 09/28/21 11:23 LDL Cholesterol, Calc 156 mg/dL (50-129) H 09/28/21 11:23 HDL Cholesterol 47 mg/dL (60-100) L 09/28/21 11:23 LDL/HDL Ratio 3.32 RATIO (0.00-3.22) H 09/28/21 11:23 Cholesterol/HDL Ratio 4.66 mg/dL (1.0-5.00) 09/28/21 11:23 Lipase 33 U/L (13-60) 09/28/21 11:23 TSH 0.01 uIU/mL (0.27-4.20) L 09/28/21 11:23 Free T4 1.61 ng/dL (0.82-1.77) 09/29/21 04:08 Free T3 3.7 PG/ML (2.0-4.4) 09/29/21 04:08 Urine Opiates Screen Positive ng/mL (Negative) H 09/28/21 17:23 Ur Barbiturates Screen Negative ng/mL (Negative) 09/28/21 17:23 Ur Phencyclidine Scrn Negative ng/mL (Negative) 09/28/21 17:23 Ur Amphetamines Screen Negative ng/mL (Negative) 09/28/21 17:23 U Benzodiazepines Scrn Negative ng/mL (Negative) 09/28/21 17:23 Urine Cocaine Screen Negative ng/mL (Negative) 09/28/21 17:23 U Marijuana (THC) Screen Positive ng/mL (Negative) H 09/28/21 17:23 SARS-CoV-2 Ag (Rapid) Negative (Negative) 09/28/21 11:41 Vitals Last Vital Signs Temp 98.5 F 09/29/21 14:00 Pulse 67 09/29/21 16:00 Resp 15 09/29/21 16:00 BP 134/69 09/29/21 16:00 Pulse Ox 94 09/29/21 16:00 Discharge Plan Discharge Patient Disposition: Home Condition: Stable Prescriptions: New aspirin 81 mg Tablet,Delayed Release (Dr/Ec) 81 mg PO DAILY 30 Days Qty: 30 0RF atorvastatin 40 mg Tablet 40 mg PO BEDTIME 30 Days Qty: 30 0RF lisinopril 20 mg Tablet 20 mg PO BID@0900,2100 30 Days Qty: 60 0RF metoprolol tartrate 50 mg Tablet 75 mg PO BID@0900,2100 30 Days Qty: 60 0RF nitroglycerin 0.4 mg Tablet, Sublingual 0.4 mg sublingual Q5M PRN (Reason: Chest Pain) 30 Days Qty: 30 0RF chlorthalidone 25 mg Tablet 25 mg PO DAILY 30 Days Qty: 30 0RF clonidine HCl 0.1 mg Tablet 0.1 mg PO BID 30 Days Qty: 60 0RF Discontinued hydralazine 50 mg Tablet 50 mg PO BID 0RF metoprolol tartrate 25 mg Tablet 75 mg PO BID 0RF Discharge Orders: Discharge Order (Routine); Ordered 09/29/21 Ordered By: Krunal Dumont Referrals: Colten Webb DO [Referring] - 4-7 days Abdiel Rodríguez MD [Physician] - 7-10 days Discharge Diet: Cardiac Discharge Activity: Resume usual activity Patient Instructions: Opioid Safety Activity Restrictions/Additional Instructions: -Please check blood pressure twice daily -Record blood pressure and a blood pressure log -Follow-up with primary care provider -Continue metoprolol 75 twice daily -Continue lisinopril 20 twice daily -Continue chlorthalidone 25 mg daily -I have added clonidine 0.1 mg twice daily, if your systolic blood pressure drops below 100 or your diastolic blood pressure drops below 50, then hold clonidine -Chest pain as needed nitroglycerin -Follow with primary care provider in 1 week -If you have recurrent chest pain go to the emergency room -Follow-up with endocrinology Discharge Attestations Time Spent in Discharge Care*: less than 30 min Quality Metrics Clinical Quality Measures [ No reported AMI, CVA or VTE this stay] Coding Level of Care Code Acute Chg FW DC note Diagnoses Hypertensive urgency I16.0 Chest pain R07.9 Anxiety F41.9
--- NOTE | 2021-09-29 18:23 | NMCV_ITS ---
NM ale perf SPECT r/s* [id number] Jonathan Mclaughlin Age: 61 Gender: M : 1960 Exam Date: 09/29/2021 18:23 Ordering Phys: Krunal Dumont MD Technologist: DONNIE Miller Exam Location: [facility] Indications: CHEST PAIN STRESS TEST Please see separate stress test report in [facility] for full findings IMAGE PROTOCOL Rest/Stress 1 Lexiscan Day Radiopharmaceutical Dose (mCi) Administration Site Administered by Rest: Tc-99m 10.8 IV DONNIE Mendenhall Sestamibi Stress:Tc-99m 33.0 IV DONNIE Mendenhall Sestamibi Rest: 29-Sep-2021 60 Discovery 630 Stress: 29-Sep-2021 30 Discovery 630 0.4mg Lexiscan. Images obtained in supine and prone position. SPECT RESULTS Technical Quality: Excellent Raw Data Analysis: Normal Image Corrections: No attenuation or motion correction applied Summed Stress Score: 0 Summed Rest Score: 0 Summed Difference Score: 0 PERFUSION FINDINGS Fairly uniform myocardial tracer uptake with no significant perfusion abnormalities FUNCTIONAL RESULTS (calculated via Gated SPECT) Stress Image LV EF (%): 68 Stress EDV (mL):145 TID: 1.1 Stress ESV (mL):47 FUNCTIONAL FINDINGS: Segmental wall motion analysis revealing no gross wall motion abnormalities IMPRESSIONS 1. Myocardial perfusion imaging revealing uniform myocardial tracer uptake with no significant perfusion abnormalities. 2. Normal left ventricular ejection fraction of 68%. 3. LV wall motion analysis revealing no gross wall motion abnormalities. 4. Near normal LV volume. Low probability for coronary ischemia, based on the above findings Dr Keyon Clarke MD FACC (Electronically Signed) Final Date: 29 September 2021 11:24 S
[2021-09-30 06:03] LABS: T4 Total 11.3 mcg/dL (4.9-10.5)
== END 2021-09-29 18:08 | disposition home or self-care (01) ==
LOC: ER 14:13 → CSU 17:35
PROVIDERS: Admitting Provider Family Medicine; Emergency Provider Emergency Medicine; PCP Family Medicine; Visit Provider Family Medicine
DX: I16.0 Hypertensive urgency (principal); R07.9 Chest pain, unspecified; F41.9 Anxiety disorder, unspecified; F17.210 Nicotine dependence, cigarettes, uncomplicated
CPT/HCPCS: 36415; 70450; 71045; 76536; 78452; 80053; 80061; 80306; 83036; 83690; 83735; 83880; 84100; 84436; 84439; 84443; 84481; 84484; 85025; 85378; 87426; 93005; 93017; 93306; 96365; 96372; 96375; 97165; 99285; A9500; G0378; J1650; J2270; J2405; J2785; J3490

== ENCOUNTER 2023-01-16 11:53 | Outpatient (CLI) | payer MEDICAID, SELFPAY ==
--- NOTE | 2023-01-16 12:09 | US_ITS ---
WS: [id number] ULTRASOUND THYROID TECHNIQUE: Ultrasound of the thyroid. CLINICAL INFORMATION: THYROID ANTIBODY POSIVIVE COMPARISON: September 29, 2021 FINDINGS: Thyroid: Right and left thyroid lobes are normal in size with heterogeneous echotexture. No suspiciou s thyroid nodules visualized today. Right thyroid lobe: 4.4 cm x 1.9 cm x 2.2 cm RIGHT thyroid volume 9.4 cc Left thyroid lobe: 4.9 cm x 1.7 cm x 2.2 cm. LEFT thyroid volume 9.2 cc Isthmus: 0.7 mm. Cervical lymphadenopathy: None. US/US thyroid [id number] IMPRESSION: 1. Heterogeneous thyroid echotexture bilaterally. No suspicious nodules. 2. Previously described Isthmus nodule not seen today. This may have represent ed a small adjacent lymph node. 3. Slightly prominent but normal-appearing lymph nodes.
== END 2023-01-16 11:54 | disposition home or self-care (01) ==
PROVIDERS: PCP Family Medicine; Visit Provider Nurse Practitioner Family
DX: R76.8 Other specified abnormal immunological findings in serum (principal); E05.90 Thyrotoxicosis, unspecified without thyrotoxic crisis or storm
CPT/HCPCS: 76536

== ENCOUNTER → 2023-02-28 15:25 | Outpatient (BNVA) | payer MEDICAID, SELFPAY | PROVIDERS: PCP Family Medicine; Referring Provider Nurse Practitioner Family; Visit Provider Internal Medicine | DX: E05.90 Thyrotoxicosis, unspecified without thyrotoxic crisis or storm (principal) | CPT/HCPCS: 36415; 83516; 84439; 84443; 84480; 86376; 86800 ==